=== PATIENT | male | born 1975 | race Caucasian/White ===

== ENCOUNTER 2022-11-10 13:46 | Emergency (ER) | payer OTHER ==
[2022-11-10 14:00] VITALS: RESP 18; BMI 38.2
[2022-11-10] MEDS ORDERED: morphine SULFATE 4 MG/ML VIAL IVPUSH ONE (14:30)
[2022-11-10] MEDS ORDERED: morphine SULFATE 4 MG/ML VIAL ONE ×2 (15:20→17:56)
[2022-11-10 15:32] LABS: BASO % 0.8 % (0-2.0); EOS % 1.4 % (0-4.5); HEMATOCRIT 45.2 % (35.4-49); HEMOGLOBIN 15.4 GM/dL (11.7-16.9); LYMPH % 19.9 % (8-40); MCHC 34.2 g/dl (32.0-35.9); MEAN CELL VOLUME 87.8 fl (80-96); MEAN PLT VOLUME 7.9 fl (7.5-11.1); MONO % 6.4 % (3.8-10.2); NEUT % 71.5 % (42.8-82.8); PLATELET COUNT 283 10^3/uL (134-434); RBC 5.15 M/mm3 (4.00-5.60); RDW 13.1 % (11.9-15.9); WHITE BLOOD COUNT 8.2 K/mm3 (4.0-10.0)
[2022-11-10 15:52] LABS: POTASSIUM 4.4 mmol/L (3.5-5.1)
[2022-11-10 15:54] LABS: ALBUMIN 3.9 g/dl (3.4-5.0); CALCIUM 8.5 mg/dL (8.5-10.1)
[2022-11-10 15:55] LABS: BLOOD UREA NITROGEN 17.2 mg/dL (7-18)
[2022-11-10 15:58] LABS: CREATININE 0.8 mg/dL (0.55-1.3)
[2022-11-10 15:59] LABS: TOT PROT 7.8 g/dl (6.4-8.2)
[2022-11-10 16:00] LABS: BILIRUBIN,TOTAL 0.3 mg/dL (0.2-1)
[2022-11-10] MEDS ORDERED: morphine CARPU-JECT 4 MG/1 ML DISP.SYRIN IVPUSH ONE (17:59)
[2022-11-10 20:10] VITALS: BP 132/78; PULSE 72; TEMP 98.1
== END 2022-11-10 20:11 | disposition home or self-care (01) ==
LOC: JER 13:46
PROC: 3E033GC Introduction of Other Therapeutic Substance into Peripheral Vein, Percutaneous Approach (ICD-10-PCS; principal; 2022-11-10)
PROC: 3E033GC Introduction of Other Therapeutic Substance into Peripheral Vein, Percutaneous Approach (ICD-10-PCS; 2022-11-10)
DX: M25.512 Pain in left shoulder (principal); M25.562 Pain in left knee; M25.552 Pain in left hip; W01.0XXA Fall on same level from slipping, tripping and stumbling without subsequent striking against object, initial encounter; Y92.512 Supermarket, store or market as the place of occurrence of the external cause; Y99.0 Civilian activity done for income or pay
CPT/HCPCS: 36415; 70450-TC; 71045-TC-FY; 72125-TC; 72128-TC; 72131-TC; 72170-TC-FY; 73030-TC-LT-FY; 73060-TC-LT-FY; 73070-TC-LT-FY; 73090-TC-LT-FY; 73110-TC-LT-FY; 73130-TC-LT-FY; 73552-TC-RT-FY; 73562-TC-RT-FY; 80053; 85025; 86850; 86900; 86901; 93005; 93010; 99285-25